=== PATIENT | female | born 1960 | race Caucasian/White ===

== ENCOUNTER 2017-03-17 03:47 | Emergency (ER) | payer BC ==
[2017-03-17] MEDS ORDERED: Morphine INJ* 4 MG/ML 1 ML CARPUJECT IV ONE (04:04)
[2017-03-17] MEDS ORDERED: Ondansetron INJ* 2 MG/ML VIAL IV ONE (04:04)
[2017-03-17 04:20] LABS: ABS Basophils 0.1 10^3/ul (0-0.2); ABS Eosinophils 0.1 10^3/ul (0-0.6); ABS Lymphocytes 1.5 10^3/ul (1.0-4.8); ABS Monocytes 0.6 10^3/ul (0-0.8); ABS Neutrophils 7.2 10^3/ul (1.5-7.7); ABS Nucleated RBC 0 10^3/ul; Eosinophil % 1.4 % (0-6); Hematocrit 43 % (35-47); Hemoglobin 14.3 g/dl (12.0-16.0); Lymphocyte % 16.2 % (25-47); Mean Corpuscular HGB Conc 34 g/dl (31-36); Mean Corpuscular Hemoglobin 29 pg (27-31); Mean Corpuscular Volume 86 fL (80-97); Mean Platelet Volume 7 um3 (7.4-10.4); Nucleated Red Blood Cells % 0.1; Platelet Count 178 10^3/ul (150-450); Red Blood Count 4.95 10^6/ul (4.0-5.4); Red Cell Distribution Width 14 % (10.5-15); White Blood Count 9.5 10^3/ul (3.5-10.8)
[2017-03-17 04:36] LABS: EGFR Non-African American 52.7 (>60)
--- NOTE | 2017-03-17 07:05 | ED ---
Anna Marie Mae Gabriel, scribjermaine for Carter Enrique MD on 03/17/17 at 0406 . Abdominal Pain/Male - HPI Summary HPI Summary: This patient is a 56 year old F presenting to [facility] accompanied by her with a chief complaint of CP since 5 hours ago. The patient rates the constant pain 7/10 in severity, located on his right side, and radiating into his back. Patient reports nausea. Patient denies vomiting and pleuritic pain. No hx of HTN. - History of Current Complaint Chief Complaint: EDChestPainROMI Stated Complaint: CHEST PAIN Time Seen by Provider: 03/17/17 03:56 Hx Obtained From: Patient Onset/Duration: Lasting Hours - 5, Still Present Timing: Constant Severity Initially: Moderate Severity Currently: Moderate Pain Intensity: 7 Pain Scale Used: 0-10 Numeric Location: Diffuse, Discrete At: RUQ Radiates: Yes Radiates to: Back Associated Signs And Symptoms: Positive: Nausea - Allergies/Home Medications Allergies/Adverse Reactions: Allergies Allergy/AdvReac Type Severity Reaction Status Date / Time No Known Allergies Allergy Verified 01/16/15 19:39 PMH/Surg Hx/FS Hx/Imm Hx Endocrine/Hematology History: Denies: Hx Diabetes, Hx Thyroid Disease Cardiovascular History: Denies: Hx Hypertension Respiratory History: Denies: Hx Asthma, Hx Chronic Obstructive Pulmonary Disease (COPD) GI History: Reports: Other GI Disorders - IBS Denies: Hx Ulcer Musculoskeletal History: Reports: Hx Arthritis - Surgical History Surgery Procedure, Year, and Place: Hernia repair with mesh. csection x3 Infectious Disease History: No Infectious Disease History: Denies: Hx Clostridium Difficile, Hx Hepatitis, Hx Human Immunodeficiency Virus (HIV), Hx of Known/Suspected MRSA, Hx Shingles, Hx Tuberculosis, Traveled Outside the [place] in Last 30 Days - Family History Known Family History: Positive: Hypertension Negative: Respiratory Disease, Seizure Disorder - Social History Alcohol Use: None Substance Use Type: Reports: None Smoking Status (MU): Never Smoked Tobacco Review of Systems Respiratory: Negative - pain on inspiration Positive: Abdominal Pain, Nausea. Negative: Vomiting All Other Systems Reviewed And Are Negative: Yes Physical Exam - Summary Physical Exam Summary: VITAL SIGNS: Reviewed. GENERAL: Patient is a morbidly obese female who is lying comfortable in the stretcher. Patient is not in any acute respiratory distress. HEAD AND FACE: No signs of trauma. No ecchymosis, hematomas or skull depressions. No sinus tenderness. EYES: PERRLA, EOMI x 2, No injected conjunctiva, no nystagmus. EARS: Hearing grossly intact. Ear canals and tympanic membranes are within normal limits. MOUTH: Oropharynx within normal limits. NECK: Supple, trachea is midline, no adenopathy, no JVD, no carotid bruit, no c- spine tenderness, neck with full ROM. CHEST: Symmetric, no tenderness at palpation LUNGS: Clear to auscultation bilaterally. No wheezing or crackles. CVS: Regular rate and rhythm, S1 and S2 present, no murmurs or gallops appreciated. ABDOMEN: Soft, RUQ tenderenss No signs of distention. No rebound no guarding, and no masses palpated. Bowel sounds are normal. EXTREMITIES: FROM in all major joints, no edema, no cyanosis or clubbing. NEURO: Alert and oriented x 3. No acute neurological deficits. Speech is normal and follows commands. SKIN: Dry and warm Triage Information Reviewed: Yes Vital Signs On Initial Exam: Initial Vitals Temp Pulse Resp BP Pulse Ox 96.7 F 94 20 191/89 98 03/17/17 03:48 03/17/17 03:48 03/17/17 03:48 03/17/17 03:48 03/17/17 03:48 Vital Signs Reviewed: Yes Diagnostics - Vital Signs Vital Signs Temp Pulse Resp BP Pulse Ox 03/17/17 03:48 96.7 F 94 20 191/89 98 - Laboratory Lab Results: Lab Results 03/17/17 03/17/17 03/17/17 Range/Units 04:10 04:10 04:10 WBC 9.5 (3.5-10.8) 10^3/ul RBC 4.95 (4.0-5.4) 10^6/ul Hgb 14.3 (12.0-16.0) g/dl Hct 43 (35-47) % MCV 86 (80-97) fL MCH 29 (27-31) pg MCHC 34 (31-36) g/dl RDW 14 (10.5-15) % Plt Count 178 (150-450) 10^3/ul MPV 7 L (7.4-10.4) um3 Neut % (Auto) 75.8 (38-83) % Lymph % (Auto) 16.2 L (25-47) % [place] % (Auto) 5.8 (1-9) % Eos % (Auto) 1.4 (0-6) % Baso % (Auto) 0.8 (0-2) % Absolute Neuts (auto) 7.2 (1.5-7.7) 10^3/ul Absolute Lymphs (auto) 1.5 (1.0-4.8) 10^3/ul Absolute Monos (auto) 0.6 (0-0.8) 10^3/ul Absolute Eos (auto) 0.1 (0-0.6) 10^3/ul Absolute Basos (auto) 0.1 (0-0.2) 10^3/ul Absolute Nucleated RBC 0 10^3/ul Nucleated RBC % 0.1 APTT 31.3 (26.0-36.3) seconds Sodium 138 (133-145) mmol/L Potassium 3.9 (3.5-5.0) mmol/L Chloride 104 (101-111) mmol/L Carbon Dioxide 27 (22-32) mmol/L Anion Gap 7 (2-11) mmol/L BUN 26 H (6-24) mg/dL Creatinine 1.07 H (0.51-0.95) mg/dL Est GFR ( Amer) 67.7 (>60) Est GFR (Non-Af Amer) 52.7 (>60) BUN/Creatinine Ratio 24.3 H (8-20) Glucose 114 H (70-100) mg/dL Calcium 9.2 (8.6-10.3) mg/dL Total Bilirubin 0.70 (0.2-1.0) mg/dL AST 16 (13-39) U/L ALT 14 (7-52) U/L Alkaline Phosphatase 59 (34-104) U/L C-Reactive Protein 9.64 H (< 5.00) mg/L Total Protein 7.0 (6.4-8.9) g/dL Albumin 4.0 (3.2-5.2) g/dL Globulin 3.0 (2-4) g/dL Albumin/Globulin Ratio 1.3 (1-3) Amylase 35 (29-103) U/L Lipase 27 (11.0-82.0) U/L Result Diagrams: 03/17/17 04:10 02/08/18 04:10 Lab Statement: Any lab studies that have been ordered have been reviewed, and results considered in the medical decision making process. - EKG 0415 Cardiac Rate: NL EKG Rhythm: Sinus Rhythm - at 86 BPM EKG Interpretation: Normal axis. Normal interval. No ischemic changes Abdominal Pain Fem Course/Dx - Course Assessment/Plan: This patient is a 56 year old F presenting to [facility] accompanied by her with a chief complaint of CP since 5 hours ago. The patient rates the constant pain 7/10 in severity, located on his right side, and radiating into his back. Patient reports nausea. Patient denies vomiting and pleuritic pain. No hx of HTN. An EKG reveals 86 bpm Normal axis. Normal interval. No ischemic changes. Test results with no significant abnormalities. In the ED course the patient was given Zofran and morphine. Patient is signed out to Dr. Ariza, pending disposition, awaiting US - Diagnoses Provider Diagnoses: Abdominal pain Discharge - Discharge Plan Condition: Stable Disposition: OTHER Discharge Disposition Comment: pt will be signed out to Dr. Ariza Referrals: Tayla Emmanuel MD [Primary Care Provider] - The documentation as recorded by the Anna Marie regalado Gabriel accurately reflects the service I personally performed and the decisions made by me, Carter Enrique MD.
--- NOTE | 2017-03-17 08:17 | RAD ---
INDICATION: Abdominal pain. COMPARISON: Comparison is made with a prior CT of the abdomen and pelvis from January 16, 2015. TECHNIQUE: Multiple real-time images of the right upper quadrant were obtained. FINDINGS: There are gallstones present. No gallbladder wall thickening or pericholecystic fluid is present. No positive sonographic Glover sign was present. There are also small gallbladder wall polyps. No intra or extrahepatic ductal distention is present. The common bile duct measured 0.5 cm in diameter. The similar to slightly larger than the is mildly enlarged without focal abnormality. The pancreas is partially obscured by overlying bowel gas. The right kidney is normal in size shape and echogenicity measuring 12.3 x 5.1 x 6.6 cm. There is a large right renal artery aneurysm present within the renal hilum measuring 3.0 x 2.8 x 3.0 cm similar to slightly larger than the prior study. The results of this exam were discussed with the referring clinician. IMPRESSION: 1. CHOLELITHIASIS WITHOUT EVIDENCE FOR ACUTE CHOLECYSTITIS. 2. SMALL GALLBLADDER WALL POLYPS. 3. 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 RECOMMEND VASCULAR CONSULTATION.
[2017-03-17 09:47] VITALS: BP 170/86
--- NOTE | 2017-03-17 09:47 | ED ---
I, Aram Simental, scribed for Lan Ariza MD on 03/17/17 at 0739 . Progress - Progress Note Progress Note: The patient is a sign out from Dr. Enrique, pending ultrasound gallbladder. At 07:25, the net technical architect is in the room doing the ultrasound. I re-evaluated the patient at 08:25. She is feeling better. She will be discharged. PHYSICAL EXAM: VITAL SIGNS: Reviewed. GENERAL: Patient is an obese female who is lying comfortable in the stretcher in no acute distress. Patient is not in any acute respiratory distress. HEAD AND FACE: Normocephalic and atraumatic. EYES: PERRLA, EOMI x 2, No injected conjunctiva. EARS: Hearing grossly intact. Ear canals and tympanic membranes are WNL. MOUTH: Oropharynx within normal limits. NECK: Supple, trachea is midline, no adenopathy, no JVD. CHEST: Symmetric, no tenderness at palpation LUNGS: Clear to auscultation bilaterally. No wheezing or crackles. CVS: RRR, S1 and S2 present, no murmurs or gallops appreciated. ABDOMEN: Soft. She has mild tenderness to the right upper quadrant. No signs of distention. Positive bowel sounds. No rebound no guarding, and no masses palpated. No abdominal bruit or pulsations. EXTREMITIES: FROM in all major joints, no edema, no cyanosis or clubbing. NEURO: Alert and oriented x 3. No acute neurological deficits. Speech is normal. SKIN: Dry and warm IMAGING: Ultrasound Gallbladder. Interpreted by radiologist. Impression: 1. CHOLELITHIASIS WITHOUT EVIDENCE FOR ACUTE CHOLECYSTITIS. 2. SMALL GALLBLADDER WALL POLYPS. 3. 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 RECOMMEND VASCULAR CONSULTATION. Dr. Ariza has reviewed this report. Assessment and Plan: The patient was signed out by Dr. Enrique to follow up on the test results of the ultrasound, and if it is negative, to discharge the patient home with follow up by primary care. The ultrasound shows that the patient has gallstones but there is no acute cholecystitis. The ultrasound also shows a right renal aneurysm that has been present since 2013. Therefore, the patient will be discharged home with pain meds as well as follow-up with Dr. Macdonald regarding the renal artery aneurysm and Dr. Sandoval regarding the gallstones. The patient is hemodynamically stable and alert and oriented x3. Condition at discharge is stable. Course/Dx - Diagnoses Provider Diagnoses: Cholelithiasis, Aneurysm of right renal artery The documentation as recorded by the Hola regalado Thomas accurately reflects the service I personally performed and the decisions made by , Lan Ariza MD.
== END 2017-03-17 09:42 ==
LOC: ED 03:47
DX: K80.20 Calculus of gallbladder without cholecystitis without obstruction (principal); I72.2 Aneurysm of renal artery; R10.11 Right upper quadrant pain; R11.0 Nausea
CPT/HCPCS: 36415; 76705; 80053; 82150; 83690; 85025; 85730; 86140; 93005; 96374; 96375; 99283; J2270; J2405